=== PATIENT | female | born 1950 | race Caucasian/White ===

== ENCOUNTER 2018-06-20 00:48 | Emergency (ER) | payer MEDICARE, BC ==
--- NOTE | 2018-06-20 01:49 | EDM.PDOC ---
ED HPI GENERAL MEDICAL PROBLEM - General Chief Complaint: Upper Extremity Injury/Pain Stated Complaint: FALL-INJURING RIGHT WRIST Time Seen by Provider: 06/20/18 01:46 Source of Information: Reports: Patient, Family, RN Notes Reviewed History Limitations: Reports: No Limitations - History of Present Illness INITIAL COMMENTS - FREE TEXT/NARRATIVE: 68-year-old female presents to the emergency department today complaint of right wrist pain, she injured herself when she fell at home on outstretched hand , she now has a deformity rates the pain 6 out of 10 Right Wrist Pain Score (Numeric/FACES): 6 - Related Data Allergies Allergy/AdvReac Type Severity Reaction Status Date / Time No Known Allergies Allergy Verified 06/20/18 01:29 Home Meds: Home Meds Acetaminophen [Tylenol] 650 mg PO TID 06/20/18 [History] Azelastine [Astelin Nasal Soln] 2 inhalation HERBERT DAILY 06/20/18 [History] Cyclobenzaprine [Flexeril] 20 mg PO BEDTIME 06/20/18 [History] Desvenlafaxine [Desvenlafaxine ER] 50 mg PO BEDTIME 06/20/18 [History] Dextroamphetamine/Amphetamine [Adderall 20 mg Tablet] 1 tab PO DAILY 06/20/18 [ History] Estradiol [Estrace] 1 mg PO DAILY 06/20/18 [History] Gabapentin [Neurontin] 300 mg PO TID 06/20/18 [History] Hydrocodone/Acetaminophen [Hydrocodon-Acetaminophn 10-325] 1 tab PO Q4H PRN 01/02 [History] Levothyroxine [Synthroid] 88 mcg PO ACBREAKFAST 06/20/18 [History] Montelukast Sodium [Singulair] 10 mg PO DAILY 06/20/18 [History] Zolpidem Tartrate [Ambien] 5 mg PO BEDTIME 06/20/18 [History] oxyCODONE 15 mg PO TID 06/20/18 [History] Past Medical History Genitourinary History: Reports: Pyelonephritis [employer] History: Reports: Musculoskeletal History: Reports: Fracture, Osteoarthritis Psychiatric History: Reports: Depression Endocrine/Metabolic History: Reports: Hypothyroidism Hematologic History: Reports: Anemia Oncologic (Cancer) History: Reports: Lymphoma - Past Surgical History HEENT Surgical History: Reports: Eye Surgery, LASIK GI Surgical History: Reports: Cholecystectomy Female Surgical History: Reports: Section Musculoskeletal Surgical History: Reports: Arthroscopic Knee Social & Family History - Tobacco Use Smoking Status *Q: Never Smoker - Caffeine Use Caffeine Use: Reports: Coffee - Recreational Drug Use Recreational Drug Use: No Review of Systems - Review of Systems Review Of Systems: See Below Musculoskeletal: Reports: Joint Pain (Right wrist) Neurological: Reports: No Symptoms ED EXAM, GENERAL - Physical Exam Exam: See Below Free Text/Narrative:: Examination of the right wrist there is an obvious deformity pedal pulse is +2 mild amount of edema around the wrist she has full range of motion all digits Course - Vital Signs Last Recorded V/S: Last Vital Signs Temp 97.3 F 06/20/18 01:26 Pulse 80 06/20/18 01:26 Resp 16 06/20/18 01:26 BP 167/89 H 06/20/18 01:26 Pulse Ox 98 06/20/18 01:26 - Orders/Labs/Meds Orders: Active Orders 24 hr Category Date Time Status Wrist 2V Rt [CR] Stat Exams 06/20/18 01:46 Taken Meds: Medications Discontinued Medications Generic Name Dose Route Start Last Admin Trade Name Freq PRN Reason Stop Dose Admin Fentanyl 50 mcg 06/20/18 02:21 06/20/18 02:26 Sublimaze IM 06/20/18 02:22 50 mcg ONETIME ONE Administration Departure - Departure Time of Disposition: 02:47 Disposition: Home, Self-Care 01 Condition: Fair Clinical Impression: Fracture of distal end of right radius Qualifiers: Encounter type: initial encounter Fracture type: closed Fracture morphology: other fracture Qualified Code(s): S52.591A - Other fractures of lower end of right radius, initial encounter for closed fracture - Discharge Information Referrals: PCP,None [Primary Care Provider] - Forms: ED Department Discharge Additional Instructions: Please report to [place] emergency department at 9 AM today - My Orders Last 24 Hours: My Active Orders 06/20/18 01:46 Wrist 2V Rt [CR] Stat - Assessment/Plan Last 24 Hours: My Active Orders 06/20/18 01:46 Wrist 2V Rt [CR] Stat Plan: Assessment Acuity = acute Site and laterality = distal radius fracture Etiology = secondary to fall on outstretched hand Manifestations = none Location of injury = Home Lab values = x-ray describes fracture above Plan called discussed case with orthopedics on-call at [place] they will see her tomorrow morning at 9 AM in the emergency department for further evaluation and treatment . She is placed in a sugar tong splint and a sling will be nothing by mouth until reevaluated by orthopedics This note was dictated using [employer] voice recognition software please call with any questions on syntax or grammar.
[2018-06-20] MEDS ORDERED: fentaNYL 100 MCG/2 ML SDV IM ONE (02:21)
--- NOTE | 2018-06-21 10:43 | CR ---
Wrist 2V Rt CLINICAL HISTORY: Right wrist pain, trauma FINDINGS: There is a comminuted fracture of the distal radius with extension into the radiocarpal sandra nt. The there is dorsal displacement of the distal aspect. Impression: Limited study Comminuted displaced fracture of the distal radius
== END 2018-06-20 02:57 | disposition home or self-care (01) ==
LOC: JP.ED 00:48
DX: S52.591A Other fractures of lower end of right radius, initial encounter for closed fracture (principal); E03.9 Hypothyroidism, unspecified; F32.9 Major depressive disorder, single episode, unspecified; Z79.899 Other long term (current) drug therapy; X50.9XXA Other and unspecified overexertion or strenuous movements or postures, initial encounter; Y92.009 Unspecified place in unspecified non-institutional (private) residence as the place of occurrence of the external cause
CPT/HCPCS: 73100; 96372; 99284; J3010